=== PATIENT | female | born 1975 | race Caucasian/White ===

== ENCOUNTER 2016-02-17 13:52 | Emergency (ER) | payer OTHER ==
[~2016-02-17] VITALS: Ht 162.6 cm; Wt 55.4 kg
[~2016-02-17 13:52] MED LIST: ATARAX,VISTARIL25 MG PO; AZITHROMYCIN250 MG PO; B COMPLETE1 EACH PO; BENADRYL25 MG PO; CALCIUM 500 MG1 EACH PO; COUMADIN10 MG PO; IBUPROFEN200 M1 PO; K-DUR20 MEQ PO; LEXAPRO10 MG PO; LIBRIUM25 MG PO; LOVENOX60 MG/0.6 SC; MOBIC15 MG PO; NICOTINE PATCH1 EAC2 TD; NOHOMEMEDS; PERCOCET 5/31 TABLET PO; POTASSIUM; PREDNISONE10 M1 PO; THIAMINE HCL100 MG PO; TYLENOL ARTHRI650 MG PO; ULTRAM50 MG PO; VENTOLIN HFA18 GM IH; WOMEN'S DAILY1 EACH PO; ZITHROMAX Z-PA250 MG PO
[2016-02-17 14:02] VITALS: BP 130/71
[2016-02-17 15:20] LABS: MCH 33.9 PG (29.0-34.0); MCHC 35.1 G/DL (30.0-36.0); MCV 96.5 FL (83-99); MEAN PLAT.VOLUME 8.6 uM^3 (9.5-12.4); PLATELET COUNT 134 K/uL (156-360); RBC DIS.WIDTH-CV 17.4 % (11.8-14.6); RBC DIS.WIDTH-SD 59.1 % (39-53); RED BLOOD COUNT 4.04 M/uL (3.80-5.20); WHITE BLOOD COUNT 4.2 K/uL (4.1-10.2)
[2016-02-17 15:31] LABS: CHLORIDE 109 mEq/L (99-109); POTASSIUM 3.8 mEq/L (3.7-5.4); SODIUM 144 mEq/L (136-147)
[2016-02-17 15:33] LABS: GLUCOSE 101 mg/dL (70-99)
[2016-02-17 15:34] LABS: AMPHETAMINE NEGATIVE (500 ng/mL); BARBITURATES NEGATIVE (200 ng/mL); BENZODIAZEPINES NEGATIVE (150 ng/mL); COCAINE NEGATIVE (150 ng/mL); METHADONE NEGATIVE (200 ng/mL); METHAMPHETAMINE NEGATIVE (500 ng/mL); OPIATES (MORPHINE) NEGATIVE (100 ng/mL); OXYCODONE NEGATIVE (100 ng/mL); PHENCYCLIDINE NEGATIVE (25 ng/mL); PROPOXYPHENE NEGATIVE (300 ng/mL); THC CANNABINOIDS NEGATIVE (50 ng/mL); TRICYCLIC ANTIDEPRESSANTS NEGATIVE (300 ng/mL)
[2016-02-17 15:34] LABS: ANION GAP 13 MEQ/L (2-14)
[2016-02-17 15:35] LABS: INTERNAL CONTROLS VALID? YES
[2016-02-17 15:36] LABS: GFR ESTIMATE (CALCULATED) > 59 mL/min/; SERUM ETHYL ALCOHOL 317 mg/dL
[2016-02-17 15:38] LABS: UREA NITROGEN (BUN) 11 mg/dL (9-23)
[2016-02-17 15:40] LABS: SALICYLATE < 5.0 MG/DL (15-30)
== END 2016-02-17 15:45 | disposition home or self-care (01) ==
LOC: EME 13:52
PROVIDERS: Emergency Medicine
DX: F10.129 Alcohol abuse with intoxication, unspecified (principal); Y90.8 Blood alcohol level of 240 mg/100 ml or more; J45.909 Unspecified asthma, uncomplicated; K21.9 Gastro-esophageal reflux disease without esophagitis; Z86.711 Personal history of pulmonary embolism; Z86.718 Personal history of other venous thrombosis and embolism; F17.200 Nicotine dependence, unspecified, uncomplicated
CPT/HCPCS: 80048; 85027; 99281; 99284; G0480

== ENCOUNTER 2016-06-09 14:46 | Inpatient (IN) | payer OTHER ==
[~2016-06-09] VITALS: Ht 162.6 cm; Wt 57.6 kg
[2016-06-09 15:30] LABS: HEMATOCRIT 36.2 % (36.0-46.0); MCH 34.4 PG (29.0-34.0); MCHC 35.4 G/DL (30.0-36.0); MCV 97.3 FL (83-99); MEAN PLAT.VOLUME 9.3 uM^3 (9.5-12.4); PLATELET COUNT 106 K/uL (156-360); RBC DIS.WIDTH-SD 49.9 % (39-53); RED BLOOD COUNT 3.72 M/uL (3.80-5.20)
[2016-06-09 15:45] LABS: CHLORIDE 108 mEq/L (99-109); POTASSIUM 3.4 mEq/L (3.7-5.4); SODIUM 139 mEq/L (136-147)
[2016-06-09 15:46] LABS: GLUCOSE 151 mg/dL (70-99)
[2016-06-09 15:48] LABS: ANION GAP 16 MEQ/L (2-14)
[2016-06-09 15:49] LABS: SERUM ETHYL ALCOHOL 329 mg/dL
[2016-06-09 15:50] LABS: GFR ESTIMATE (CALCULATED) > 59 mL/min/
[2016-06-09 15:51] LABS: UREA NITROGEN (BUN) 12 mg/dL (9-23)
[2016-06-09 16:45] LABS: ADD MEDTOX COMMENT Y; AMPHETAMINE NEGATIVE (500 ng/mL); BARBITURATES NEGATIVE (200 ng/mL); BENZODIAZEPINES PRESUMPTIVE POSITIVE (150 ng/mL); COCAINE NEGATIVE (150 ng/mL); INTERNAL CONTROLS VALID? YES; METHADONE NEGATIVE (200 ng/mL); METHAMPHETAMINE NEGATIVE (500 ng/mL); OPIATES (MORPHINE) NEGATIVE (100 ng/mL); OXYCODONE NEGATIVE (100 ng/mL); PHENCYCLIDINE NEGATIVE (25 ng/mL); PROPOXYPHENE NEGATIVE (300 ng/mL); THC CANNABINOIDS NEGATIVE (50 ng/mL); TRICYCLIC ANTIDEPRESSANTS NEGATIVE (300 ng/mL)
[2016-06-09 17:22] LABS: BENZODIAZEPINES QUANT VALUE 0 NG/ML
[2016-06-09 17:23] LABS: BENZODIAZEPINES, URINE SCREEN Negative (200 ng/mL)
[2016-06-09 20:45] LABS: POINT-OF-CARE METER ID UU13113702
[2016-06-10] MEDS ORDERED: ATARAX,VISTARIL50 MG PO (04:51)
[2016-06-10] MEDS ORDERED: ADVAIR HFA120 INHALA IH (04:51)
[2016-06-10] MEDS ORDERED: PROAIR HFA8.5 GM IH (04:53)
[2016-06-10 05:56] VITALS: BP 130/77
[2016-06-10 07:41] VITALS: BP 138/83
[2016-06-10 13:08] VITALS: BP 124/86
[2016-06-10 15:29] VITALS: BP 127/64
[2016-06-11 07:46] VITALS: BP 122/71
[2016-06-11 14:13] VITALS: BP 128/60
[2016-06-11 15:32] VITALS: BP 135/64
[2016-06-12 07:45] VITALS: BP 108/72
[2016-06-12 15:51] VITALS: BP 131/64
[2016-06-13 07:50] VITALS: BP 117/74
[2016-06-13] MEDS ORDERED: HYDROXYZINE PAM25 MG PO (11:00)
[2016-06-13] MEDS ORDERED: TRAZODONE HCL50 MG PO (11:00)
== END 2016-06-13 13:06 | disposition home or self-care (01) | DRG 897 ==
LOC: EME 14:46 → 1WEST 06-10 04:10 → EDOF 06-10 04:10 → 1WEST 06-10 04:59
PROVIDERS: Emergency Medicine
PROC: HZ2ZZZZ Detoxification Services for Substance Abuse Treatment (ICD-10-PCS; principal; 2016-06-10)
DX: F10.239 Alcohol dependence with withdrawal, unspecified (principal); F41.9 Anxiety disorder, unspecified; G47.00 Insomnia, unspecified; R45.851 Suicidal ideations; F10.229 Alcohol dependence with intoxication, unspecified; Y90.8 Blood alcohol level of 240 mg/100 ml or more; F41.0 Panic disorder [episodic paroxysmal anxiety]; Z86.711 Personal history of pulmonary embolism; Z86.718 Personal history of other venous thrombosis and embolism; Z59.0 Homelessness; R11.0 Nausea
CPT/HCPCS: 80048; 82948; 84999; 85027; 90839; 94640; 94640 76; 97150 GO; 97166 GO; 99202; 99281; 99285; G0480; Q0177

== ENCOUNTER 2017-09-26 11:25 | Emergency (ER) | payer OTHER ==
[~2017-09-26] VITALS: Ht 162.6 cm; Wt 60.8 kg
[~2017-09-26 11:25] MED LIST changes: +ADVAIR HFA120 INHALA IH; +ATARAX,VISTARIL50 MG PO; +HYDROXYZINE PAM25 MG PO; +PROAIR HFA8.5 GM IH; +TRAZODONE HCL50 MG PO
[2017-09-26 12:09] LABS: APPEARANCE SL.HAZY ((CLEAR)); BILIRUBIN NEGATIVE; BLOOD NEGATIVE; COLOR YELLOW ((YELLOW)); GLUCOSE (STRIP) NEGATIVE; KETONES NEGATIVE; LEUKOCYTES NEGATIVE; NITRITE NEGATIVE; PROTEIN (STRIP) NEGATIVE; SPECIFIC GRAVITY 1.015 (1.000-1.030); UROBILINOGEN 0.2 MG/DL (0.2-1.0)
[2017-09-26 12:17] LABS: BASOPHIL (%) 0.5 % (0-1); EOSINOPHIL (%) 0.9 % (0-5); EOSINOPHIL COUNT 0.1 K/uL (0-0.3); HEMOGLOBIN 12.6 G/DL (11.9-15.5); IMMATURE GRANULOCYTE (%) 0.3 % (0.0-0.7); LYMPHOCYTE (%) 29.7 % (15-42); MCV 91.4 FL (83-99); MONOCYTE (%) 6.7 % (3-12); MONOCYTE COUNT 0.4 K/uL (0-0.8); NEUTROPHIL (%) 61.9 % (45-76); NEUTROPHIL COUNT 4.1 K/uL (1.8-6.4); PLATELET COUNT 163 K/uL (156-360); RBC DIS.WIDTH-CV 14.4 % (11.8-14.6); RED BLOOD COUNT 3.94 M/uL (3.80-5.20); WHITE BLOOD COUNT 6.6 K/uL (4.1-10.2)
[2017-09-26 12:19] LABS: AMPHETAMINE NEGATIVE (500 ng/mL); BARBITURATES NEGATIVE (200 ng/mL); BENZODIAZEPINES NEGATIVE (150 ng/mL); BUPRENORPHINE NEGATIVE (10 ng/mL); COCAINE NEGATIVE (150 ng/mL); METHADONE NEGATIVE (200 ng/mL); METHAMPHETAMINE NEGATIVE (500 ng/mL); OPIATES (MORPHINE) NEGATIVE (100 ng/mL); OXYCODONE NEGATIVE (100 ng/mL); PHENCYCLIDINE NEGATIVE (25 ng/mL); PROPOXYPHENE NEGATIVE (300 ng/mL); THC CANNABINOIDS PRESUMPTIVE POSITIVE (50 ng/mL); TRICYCLIC ANTIDEPRESSANTS NEGATIVE (300 ng/mL)
[2017-09-26 12:49] LABS: BACTERIA NONE SEEN /HPF; EPITHELIAL CELLS 2+ /HPF; HYALINE CASTS 0-5 /LPF; MUCUS TRACE /LPF; RED BLOOD CELLS NONE SEEN /HPF (0-5); WHITE BLOOD CELLS NONE SEEN /HPF (0-5)
[2017-09-26 13:15] LABS: CHLORIDE 103 MEQ/L (99-109); CREATININE 0.8 MG/DL (0.6-1.3); GFR ESTIMATE (CALCULATED) > 59 mL/min/; GLUCOSE 131 mg/dL (70-99); POTASSIUM 4.3 MEQ/L (3.7-5.4); SERUM ETHYL ALCOHOL < 10 mg/dL; SODIUM 139 MEQ/L (136-147); UREA NITROGEN (BUN) 9 mg/dL (9-23)
[2017-09-26 14:17] VITALS: BP 154/81
[2017-09-26] MEDS ORDERED: LIBRIUM25 MG PO (19:03)
== END 2017-09-26 14:29 | disposition home or self-care (01) ==
LOC: EME 11:25
PROVIDERS: Emergency Medicine
DX: F41.9 Anxiety disorder, unspecified (principal); F31.9 Bipolar disorder, unspecified; F10.20 Alcohol dependence, uncomplicated; Y90.0 Blood alcohol level of less than 20 mg/100 ml; J45.909 Unspecified asthma, uncomplicated; F32.9 Major depressive disorder, single episode, unspecified; Z86.718 Personal history of other venous thrombosis and embolism; Z88.5 Allergy status to narcotic agent; Z88.0 Allergy status to penicillin; F17.200 Nicotine dependence, unspecified, uncomplicated; K21.9 Gastro-esophageal reflux disease without esophagitis
CPT/HCPCS: 80048; 81003; 84999; 85025; 90839; 99281; 99284; G0480

== ENCOUNTER 2017-09-26 15:43 | Emergency (ER) | payer OTHER ==
[~2017-09-26] VITALS: Ht 162.6 cm; Wt 59.0 kg
[2017-09-26 16:48] LABS: HEMOGLOBIN 12.2 G/DL (11.9-15.5); MCH 31.6 PG (29.0-34.0); MCHC 34.9 G/DL (30.0-36.0); MCV 90.7 FL (83-99); PLATELET COUNT 161 K/uL (156-360); RBC DIS.WIDTH-CV 14.2 % (11.8-14.6); RBC DIS.WIDTH-SD 46.5 % (39-53); RED BLOOD COUNT 3.86 M/uL (3.80-5.20); WHITE BLOOD COUNT 6.1 K/uL (4.1-10.2)
[2017-09-26 17:05] LABS: CHLORIDE 103 mEq/L (99-109); POTASSIUM 4.4 mEq/L (3.7-5.4); SODIUM 138 mEq/L (136-147)
[2017-09-26 17:07] LABS: GLUCOSE 138 mg/dL (70-99)
[2017-09-26 17:10] LABS: SERUM ETHYL ALCOHOL < 10 mg/dL
[2017-09-26 17:11] LABS: CREATININE 0.8 mg/dL (0.6-1.3); GFR ESTIMATE (CALCULATED) > 59 mL/min/
[2017-09-26 17:12] LABS: UREA NITROGEN (BUN) 8 mg/dL (9-23)
[2017-09-26 17:13] LABS: CREATINE KINASE 58 IU/L (1-294)
[2017-09-26 18:02] LABS: AMPHETAMINE NEGATIVE (500 ng/mL); BARBITURATES NEGATIVE (200 ng/mL); BENZODIAZEPINES NEGATIVE (150 ng/mL); BUPRENORPHINE NEGATIVE (10 ng/mL); COCAINE NEGATIVE (150 ng/mL); METHADONE NEGATIVE (200 ng/mL); METHAMPHETAMINE NEGATIVE (500 ng/mL); OPIATES (MORPHINE) NEGATIVE (100 ng/mL); OXYCODONE NEGATIVE (100 ng/mL); PHENCYCLIDINE NEGATIVE (25 ng/mL); PROPOXYPHENE NEGATIVE (300 ng/mL); THC CANNABINOIDS PRESUMPTIVE POSITIVE (50 ng/mL); TRICYCLIC ANTIDEPRESSANTS NEGATIVE (300 ng/mL)
[2017-09-26] MEDS ORDERED: LIBRIUM25 MG PO (19:03)
[2017-09-26 19:17] VITALS: BP 130/84
== END 2017-09-26 19:22 | disposition home or self-care (01) ==
LOC: EME 15:43
PROVIDERS: Emergency Medicine
DX: F10.239 Alcohol dependence with withdrawal, unspecified (principal); K21.9 Gastro-esophageal reflux disease without esophagitis; J45.909 Unspecified asthma, uncomplicated; F32.9 Major depressive disorder, single episode, unspecified; F41.9 Anxiety disorder, unspecified; F31.9 Bipolar disorder, unspecified; F17.200 Nicotine dependence, unspecified, uncomplicated; Z86.69 Personal history of other diseases of the nervous system and sense organs; Z87.19 Personal history of other diseases of the digestive system; Z86.711 Personal history of pulmonary embolism; Z86.718 Personal history of other venous thrombosis and embolism; Z79.51 Long term (current) use of inhaled steroids; Z88.5 Allergy status to narcotic agent; Z88.0 Allergy status to penicillin
CPT/HCPCS: 80048 91; 82550; 84999; 85027; 99281; 99284; G0480; J2060; J7030